=== PATIENT | male | born 1970 | race Caucasian/White ===

== ENCOUNTER → 2021-08-09 | Outpatient (CLI) | payer BC ==
[2021-08-09 15:15] LABS: HCT 42.5 % (39.6-50.0); HGB 13.9 g/dL (13.0-17.0); MCH 30.2 pg (27.0-32.0); MCHC 32.7 g/dL (32.0-37.0); MCV 92.4 fL (80.0-97.0); Mean Platelet Volume 10.4 fL (9.5-12.2); Platelet Count 206 X 10*3/uL (140-440); RDW 13.5 % (11.5-14.5); WBC 7.93 X 10*3/uL (4.50-10.00)
[2021-08-09 23:43] LABS: African American GFR (CKD) 102.7 (60.0-200.0); Albumin 4.6 g/dL (3.80-4.90); Albumin/Globulin Ratio 2.3 (1.60-3.17); Anion Gap 7.9 mmol/L (4.00-12.00); Calcium 9.3 mg/dL (8.7-10.3); Carbon Dioxide 27.1 mmol/L (21.6-31.8); Chol/HDL Ratio 3.02; LDL Cholesterol,Calculated 87.8 mg/dL (0.0-131.0); Non-African American GFR(CKD) 88.6 (60.0-200.0); Potassium 4.8 mmol/L (3.5-5.5); Total Bilirubin 0.7 mg/dL (0.3-1.2); Total Protein 6.6 g/dL (6.2-8.2); VLDL Calculation 13.2 mg/dL (5.00-40.00)
== END | disposition home or self-care (01) ==
LOC: LABWHC1 08:21
PROVIDERS: ATTEND Family Medicine
DX: Z01.84 Encounter for antibody response examination (principal); I10 Essential (primary) hypertension; E78.2 Mixed hyperlipidemia; R53.83 Other fatigue
CPT/HCPCS: 36415; 80053; 80061; 82306; 84443; 85027; 86769

== ENCOUNTER 2021-09-20 21:16 | Emergency (ER) | payer BC ==
[2021-09-20 21:26] VITALS: RESP 20
--- NOTE | 2021-09-20 22:04 | ED ---
Chest Pain HPI - General Chief Complaint: Chest Pain Stated Complaint: Chest Pain Time Seen by Provider: 09/20/21 21:33 Source: patient Mode of arrival: wheelchair Limitations: no limitations - History of Present Illness Initial Comments: This patient is a 50-year-old man who presents with left upper chest pain that does radiate to his back. He had developed a little over 24 hours ago. Patient states that it does seem to be worse with deep breath. He has not noted any associated symptoms. No fever or chills. No dyspnea, nausea, vomiting or palp itations. The patient states he does have occasional cough but attributes that to smoker's cough. He has not noted change in the cough recently. MD Complaint: chest pain Onset/Timin -: hour(s) Onset: during rest Pain Location: left chest Pain Radiation: back Severity: moderate Quality: aching Consistency: constant Improves With: nothing Worsens With: inspiration Treatments Prior to Arrival: none - Related Data Home Medications Medication Instructions Recorded Confirmed Celecoxib [CeleBREX] 200 mg PO BID 09/20/21 09/20/21 amLODIPine [Norvasc] 5 mg PO BID 09/20/21 09/20/21 Previous Rx's Medication Instructions Recorded Azithromycin [Zithromax Z-pack (6 250 mg PO DIRECTED #6 tab 09/21/21 tabs)] Allergies Allergy/AdvReac Type Severity Reaction Status Date / Time No Known Allergies Allergy Verified 09/20/21 23:20 Review of Systems ROS Statement: Those systems with pertinent positive or pertinent negative responses have been documented in the HPI. ROS Other: All systems not noted in ROS Statement are negative. Constitutional: Denies: fever, chills ENT: Denies: congestion Respiratory: Reports: as per HPI, cough. Denies: dyspnea, wheezes, hemoptysis Cardiovascular: Reports: as per HPI, chest pain. Denies: palpitations, orthopnea, edema, syncope Gastrointestinal: Denies: abdominal pain, nausea, vomiting Genitourinary: Denies: dysuria, hematuria Musculoskeletal: Denies: back pain Skin: Denies: rash Neurological: Denies: headache, weakness, numbness EKG Findings - EKG Results: EKG: interpreted by JAVIER PAEZL, sinus rhythm (Rate 77 bpm), normal axis, normal QRS, normal ST/T, no acute changes Past Medical History Past Medical History: Hypertension Additional Past Medical History / Comment(s): arthritis History of Any Multi-Drug Resistant Organisms: None Reported Past Surgical History: Hernia Repair Past Psychological History: No Psychological Hx Reported Smoking Status: Current every day smoker Past Alcohol Use History: None Reported Past Drug Use History: None Reported General Exam Limitations: no limitations General appearance: alert, in no apparent distress Head exam: Present: atraumatic, normocephalic Eye exam: Present: normal appearance. Absent: scleral icterus, conjunctival injection ENT exam: Present: normal oropharynx Neck exam: Present: normal inspection Respiratory exam: Present: normal lung sounds bilaterally. Absent: respiratory distress, wheezes, rales, rhonchi, stridor Cardiovascular Exam: Present: regular rate, normal rhythm, normal heart sounds. Absent: systolic murmur, diastolic murmur, rubs, gallop GI/Abdominal exam: Present: soft. Absent: distended, tenderness, guarding, rebound, rigid, mass Extremities exam: Present: normal inspection, normal capillary refill. Absent: pedal edema, calf tenderness Back exam: Present: normal inspection. Absent: CVA tenderness (R), CVA tenderness (L) Neurological exam: Present: alert Skin exam: Present: warm, dry, intact, normal color. Absent: rash Course Vital Signs 09/20/21 09/21/21 21:22 01:30 Temperature 100.2 F H 99.2 F Pulse Rate 83 69 Respiratory 20 20 Rate Blood Pressure 151/91 143/101 O2 Sat by Pulse 94 L 95 Oximetry Disposition Clinical Impression: Pneumonia Disposition: HOME SELF-CARE Condition: Good Instructions (If sedation given, give patient instructions): Pneumonia (ED) Prescriptions: Azithromycin [Zithromax Z-pack (6 tabs)] 250 mg PO DIRECTED #6 tab Is patient prescribed a controlled substance at d/c from ED?: No Referrals: Julio Monterroso DO [Primary Care Provider] - 1-2 days
[2021-09-20 22:36] LABS: Basophils # (A) 0.1 k/uL (0-0.2); Basophils % (A) 0 %; Eosinophils # (A) 0.1 k/uL (0-0.7); Eosinophils % (A) 1 %; HCT 40.9 % (39.0-53.0); HGB 13.4 gm/dL (13.0-17.5); Lymphocytes # (A) 1.6 k/uL (1.0-4.8); Lymphocytes % (A) 12 %; MCH 29.9 pg (25.0-35.0); MCHC 32.9 g/dL (31.0-37.0); Mean Platelet Volume 7.6; Monocytes # (A) 0.9 k/uL (0-1.0); Monocytes % (A) 6 %; Neutrophils # (A) 11.3 k/uL (1.3-7.7); Neutrophils % (A) 80 %; Platelet Count 210 k/uL (150-450); RDW 12.7 % (11.5-15.5); WBC 14.1 k/uL (3.8-10.6)
--- NOTE | 2021-09-20 22:42 | XR ---
EXAMINATION TYPE: XR chest 2V DATE OF EXAM: 09/20/2021 COMPARISON: NONE HISTORY: Chest pain TECHNIQUE: 2 views FINDINGS: There is some atelectasis at the lung bases there is no heart failure. Heart size is normal . Bony thorax is intact. IMPRESSION: Interstitial mild infiltrates and atelectasis at the lung bases.
[2021-09-20 22:44] LABS: ALT 43 U/L (4-49); AST 46 U/L (17-59); African American GFR (CKD) >90 (>60 ml/min/1.73 sqM); Alkaline Phosphatase 79 U/L (38-126); Amylase 50 U/L (30-110); Anion Gap 8 mmol/L; Blood Urea Nitrogen 20 mg/dL (9-20); Calcium 9.3 mg/dL (8.4-10.2); Carbon Dioxide 26 mmol/L (22-30); Chloride 105 mmol/L (98-107); Glucose 114 mg/dL (74-99); Lipase 151 U/L (23-300); Magnesium 2.1 mg/dL (1.6-2.3); Non-African American GFR(CKD) 78 (>60 ml/min/1.73 sqM); Potassium 3.9 mmol/L (3.5-5.1); Sodium 139 mmol/L (137-145); Total Bilirubin 0.3 mg/dL (0.2-1.3); Total Protein 6.5 g/dL (6.3-8.2)
[2021-09-20 22:54] LABS: Partial Thromboplastin Time 22.4 sec (22.0-30.0); Prothrombin Time 10.4 sec (9.0-12.0)
--- NOTE | 2021-09-20 23:45 | CT ---
EXAMINATION TYPE: CT chest angio for PE DATE OF EXAM: 09/20/2021 COMPARISON: None HISTORY: Chest pain CT DLP: 500.3 mGycm Automated exposure control for dose reduction was used. CONTRAST: Performed with IV Contrast, patient injected with 70 mL of Isovue 370. Images obtained from the thoracic inlet to the diaphragm with IV contrast. There are 3-D post process ed images. There is mild interstitial infiltrate and atelectasis at both lung bases. There is no pleural effusio n. Heart size is fairly normal. There is no pericardial effusion. There is no mediastinal adenopathy. There are no hilar masses. Thoracic aorta is intact. There is no aneurysm or dissection. There is normal contrast opacification of the pulmonary arteries. There are no filling defects. Thoracic spine is intact. Sternum is intact. There is no compression fracture. I see no bony destruct mery process. IMPRESSION: No evidence of pulmonary embolism. There is interstitial infiltrate and atelectasis at the posterior lung bases. Normal heart.
[2021-09-21] MEDS ORDERED: KETOROLAC 15 MG/ML 1 ML VIAL IVP STA (00:27)
[2021-09-21] MEDS ORDERED: AZITHROMYCIN 500 MG TAB PO STA (00:27)
[2021-09-21 01:33] VITALS: BP 143/101; PULSE 69
[2021-09-21 01:54] VITALS: TEMP 98.1
== END 2021-09-21 02:00 | disposition home or self-care (01) ==
LOC: EC 21:16
DX: J18.9 Pneumonia, unspecified organism (principal); I10 Essential (primary) hypertension; F17.200 Nicotine dependence, unspecified, uncomplicated
CPT/HCPCS: 99285; 96374; 36415; 93005; 85379; 80053; 82150; 83690; 83735; 84484; 85025; 85610; 85730; 87635; 71046; 71275; J1885; Q9967